=== PATIENT | male | born 1955 | race Caucasian/White ===

== ENCOUNTER 2019-03-13 07:18 | Emergency (ER) | payer MEDICAID, OTHER ==
[~2019-03-13] VITALS: Ht 175.3 cm; Wt 99.0 kg
[~2019-03-13 07:18] MED LIST: ATOR20TA37 PO; DABI150C PO; METO-93 PO; PT TO BRING LIST; TAMS0.4C2 PO
--- NOTE | 2019-03-13 07:38 | NUR ---
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
--- NOTE | 2019-03-13 07:46 | NUR ---
DEFIB PADS PLACED LAST ASPIRIN LAST NIGHT AT 9PM 650MG 149, 126/89
[2019-03-13] MEDS ORDERED: ACET325T14 PO (07:49)
[2019-03-13] MEDS ORDERED: DILTIAZEM 5 MG/ML, 5ML IV ONE (08:00)
[2019-03-13 08:04] LABS: BASOPHILS # (AUTO) 0.04 x10^3/uL (0-0.1); BASOPHILS % (AUTO) 1 % (0-1); EOSINOPHILS # (AUTO) 0.09 x10^3/uL (0-0.4); EOSINOPHILS % (AUTO) 1 % (1-7); LYMPHOCYTES # (AUTO) 2.96 x10^3/uL (1-3.4); LYMPHOCYTES % (AUTO) 33 % (22-44); MD NO; MEAN CORPUSCULAR HEMOGLOBIN 33.1 pg (27.5-34.5); MEAN CORPUSCULAR HGB CONC 33.8 g/dL (33.2-36.2); MEAN CORPUSCULAR VOLUME 97.8 fL (81-97); MEAN PLATELET VOLUME 9.1 fL (7.4-10.4); MONOCYTES # (AUTO) 0.69 x10^3/uL (0.2-0.8); MONOCYTES % (AUTO) 8 % (2-9); NEUTROPHILS # (AUTO) 5.17 x10^3/uL (1.8-6.8); NEUTROPHILS % (AUTO) 58 % (42-75); PLATELET COUNT 166 x10^3/uL (130-400); RED BLOOD COUNT 4.97 x10^6/uL (4.38-5.82); RED CELL DISTRIBUTION WIDTH 12.9 % (9.4-14.8)
--- NOTE | 2019-03-13 08:10 | NUR ---
XRAY AT BEDSIDE PLACED ON 2L NC PRECAUTION
[2019-03-13 08:13] LABS: INTERNATIONAL NORMALIZED RATIO 0.98 (0.93-1.1); PROTHROMBIN TIME 10.3 Seconds (9.6-11.5)
[2019-03-13] MEDS ORDERED: ASPIRIN 81 MG TABLET CHEW ONE (08:13)
[2019-03-13] MEDS ORDERED: DILTIAZEM 5 MG/ML, 10ML ONE (08:13)
[2019-03-13 08:15] LABS: ALBUMIN 3.5 g/dL (3.4-5.0); ANION GAP 6 mmol/L (5-15); CALCIUM 8.2 mg/dL (8.5-10.1); CHLORIDE 115 mmol/L (98-107); CREATININE 0.96 mg/dL (0.7-1.3)
[2019-03-13] MEDS ORDERED: PROPOFOL 10 MG/ML, 20ML ONE (08:16)
[2019-03-13 08:19] LABS: TROPONIN I < 0.015 ng/mL (0.000-0.045)
--- NOTE | 2019-03-13 08:21 | NUR ---
PLAN CLARIFIED WITH PROVIDER: AFTER CLARIFICATION WITH PATIENT'S HOUSE FATHER-AVOID ASPIRIN (TOOK ASA LESS THEN 12 HOURS), AVOID DILTSZEM. PLAN FOR ELECTRICAL CARDIOVERSION INVASIVE MANAGER OBTAINING CONSENTS FOR PROVIDER/VERIFYING ROOM SETUP PATIENT MADE AWARE PHYSICAL EXAM UNCHANGED 146, 115/87, 99% ON 2L NC
[2019-03-13] MEDS ORDERED: ONDANSETRON 2MG/ML, 2ML ONE (08:54)
[2019-03-13] MEDS ORDERED: PROPOFOL 10 MG/ML, 20ML IVPush ONE ×2 (09:30)
[2019-03-13] MEDS ORDERED: SODIUM CHLORIDE 0.9% 1,000 ML IV ONE (09:30)
[2019-03-13] MEDS ORDERED: ONDANSETRON 2MG/ML, 2ML IVPush ONE ×2 (09:30→10:00)
--- NOTE | 2019-03-13 09:38 | NUR ---
CONSENT OBTAINED AT 8:39 TIME OUT AT 8:40 50MG OF PROPOFOL BY DR. ALLEN AT 8:47 30MG OF PROPOFOL BY DR ALLEN AT 8:49 200 JOULES AT 8:50 WITH IMMEDIATE CHANGE FROM AFLUTTER/AFIB TO NORMAL SINUS RHYTHM PATIENT RECOVERED BURPING/HEAVING NOTED- 4MG OF IV ZOFRAN AT 8:57-NO VOMITING NO AIRWAY/BLOOD PRESSURE INTERVENTIONS NEEDED (PATIENT MAINTAINED AIRWAY W/ 6L NC/B/P REMAIN STABLE) PATIENT FULLY AWAKE AND PAIN FREE AT 9:03 REMAINS IN NSR FROM 65-75
[2019-03-13] MEDS ORDERED: MORPHINE SULFATE 4 MG/ML, 1ML ONE (09:59)
[2019-03-13] MEDS ORDERED: MORPHINE SULFATE 4 MG/ML, 1ML IVPush PRN (10:00)
--- NOTE | 2019-03-13 10:03 | NUR ---
MEDICATED PER EMAR FOR 5/10 LEFT CHEST PAIN DESCRIBED SHARP REPEAT EKG OBTAINED WELL VITALS STABLE ON MONITOR 71, 110/71
--- NOTE | 2019-03-13 10:20 | NUR ---
Patient reports chest pain completely improved 0/10 Patient tolerating po fluids Vitals remain stable Walked to restroom w/ steady gait and was able to void Public Relations Assistant reviewed symptoms to watch for/what requires re-evaluation Plan to f/u w/ physician surgeon, start Eliquis BID (patient provided with coupon from provider) & avoid stress/nicotine/caffiene
[2019-03-13 10:40] VITALS: BP 117/73
== END 2019-03-13 10:51 | disposition home or self-care (01) ==
LOC: ED 10:45
DX: I48.91 Unspecified atrial fibrillation (principal); I48.92 Unspecified atrial flutter; I10 Essential (primary) hypertension; F17.210 Nicotine dependence, cigarettes, uncomplicated
CPT/HCPCS: 36415; 71045; 80048; 82040; 84484; 85025; 85610; 85730; 92960; 93005; 96374; 96375; 99152; 99285; J2270; J2405; J2704; J7030

== ENCOUNTER → 2019-08-07 | Outpatient (CLI) | payer OTHER ==
[~2019-08-07] MED LIST changes: +ACET325T14 PO
== END | disposition home or self-care (01) ==
LOC: CVU 06:39
PROVIDERS: ATTEND Internal Medicine Cardiovascular Disease
DX: I35.8 Other nonrheumatic aortic valve disorders (principal); I48.91 Unspecified atrial fibrillation; Z72.0 Tobacco use
CPT/HCPCS: 93306